=== PATIENT | female | born 1955 | race Caucasian/White ===

== ENCOUNTER → 2017-05-18 | Outpatient (CLI) | payer BC, SELFPAY ==
[~2017-05-18] MED LIST: CORDARONE,PACE200 MG PO; COREG6.25 MG PO; DELTASONE10 MG PO; FLOVENT 110 M110 MCG INH; K-TAB 10MEQ10 MEQ PO; LASIX20 MG PO; MAG-OX-400(241400 MG PO; NICODERM (HABIT14 MG TOP; TAPAZOLE5 MG PO; TYLENOL325 MG PO; VASOTEC5 MG PO; XARELTO20 MG PO
== END | disposition disaster alternative care site (69) ==
LOC: LNHI 16:27
DX: I10 Essential (primary) hypertension (principal)